=== PATIENT | male | born 1960 | race African-American/Black ===

== ENCOUNTER 2016-10-10 16:17 | Inpatient (IN) | payer OTHER ==
--- NOTE | ~2016-10-10 | CN ---
Consultation Report [facility] [place] [address] [place]. [address] NAME: IRAJ PATEL : 60 STATUS : ADM IN PAT#: [id number] AGE: 56 ADM/REG DATE : 10/10/16 MR#: [id number] REPORT SERV DATE: 10/11/16 DICTATED BY: PAT VALLES DATE: 10/11/16 REPORT STATUS : Draft TRANSCRIBED BY: MODL DATE: 10/11/16 CARDIOLOGY CONSULTATION DATE OF CONSULTATION: REASON FOR EVALUATION: Chest pain, atrial fibrillation, rapid ventricular response, fatigue, and exertional dyspnea. HISTORY OF PRESENT ILLNESS: The patient is a 56-year-old male with combined cardiomyopathy, atrial fibrillation with rapid ventricular response, ventricular tachycardia ([employer]on ICD in situ), and diabetes mellitus. He has had a number of cardiac procedures over the years, including ablation attempts at [facility] in 2009 and the [facility] in 2013. He states his atrial fibrillation has been more chronic. He has had a number of ICD discharges over the years, 90% of which he states are due to atrial fibrillation with rapid ventricular response. He has had two MIs, the first 09/2005, the second 10/2005, where he had an arrest x2 and a defibrillator placed ([employer] Alon). At the time of his TN in 10/2005, he states there was an attempt to place a stent unsuccessfully. His defibrillator is a single-chamber [employer] Alon device with an SVC coil placed at some point. His last hospitalization was in 01/2016 at [place] following a defibrillator discharge. He has had progressive decline in stamina, increasing dyspnea, and worsening malaise over the past two months (recently moved to [place] two months ago). He states he has had diaphoresis just walking the collado. He has had lower extremity edema, which is improved as of late. He states over the past several months, his sleep hygiene has deteriorated, he is only able sleep two to three hours. Presently, he is more comfortable. He denies sleep apnea, although he certainly has the physiognomy that would be consistent with underlying sleep apnea. CURRENT HOME MEDICATIONS: Aspirin 325 a day, atorvastatin 40 at h.s., carvedilol 25 b.i.d., furosemide 40 per day, glipizide 10 b.i.d., lisinopril 10 per day, Aldactone 25 q.a.m., Bactrim DS x15 days, and vitamin D twice weekly. ALLERGIES OR INTOLERANCES: Penicillins (unknown reaction). FAMILY HISTORY: Mother had diabetes and an enlarged heart, she had a pacemaker in her late 70s. Father at age 66 from an TN. SOCIAL HISTORY: He is , with one child. Does not use tobacco products, having quit four to five years ago. He did have a 15-year history. He has one joint daily for the past 30 years. He only uses it every couple of weeks at this time. Consultation Report [id number] [facility] [place]. [address] NAME: IRAJ PATEL : 60 STATUS : ADM IN [facility]#: [id number] AGE: 56 ADM/REG DATE : 10/10/16 MR#: [id number] REPORT SERV DATE: 10/11/16 DICTATED BY: PAT VALLES DATE: 10/11/16 REPORT STATUS : Draft TRANSCRIBED BY: LESLEY DATE: 10/11/16 PAST MEDICAL HISTORY/REVIEW OF SYSTEMS: See above. In addition, much of his cardiac care has been by Dr. Cavanaugh at the [facility] in [place], where he had his first arteriogram in 10/2005. He had a second arteriogram at the [facility] in 2009 and a third in [address] [facility] in [place]. His diabetes was diagnosed a year and a half ago. He has had only fair control. He has hypertension and hyperlipidemia. He has had some epigastric pain. He has chronic renal insufficiency, falling to a CKD stage 3 category. PHYSICAL EXAMINATION: GENERAL: Pleasant 56-year-old male. VITAL SIGNS: On arrival to the ER, blood pressure was 109/71, pulse 88 and irregular, respirations 16. SKIN: No xanthelasmas. He has some trophic changes and hyperpigmentation of the lower extremities from chronic edema. HEENT: He is normocephalic. There is no pallor. Sclerae are white. NECK: JVD is not elevated. There are no carotid bruits. CHEST: There is good AP movement. No crackles. CARDIAC: S1 variable, S2 singular. There is no gallop. There are no murmurs. ABDOMEN: Obese, but without tenderness. EXTREMITIES: At this time are without edema. NEUROLOGIC: No overt focal deficits. LABORATORY DATA: His chest x-ray shows cardiomegaly without acute abnormalities. His initial sodium was 131 and initial creatinine 1.74, which has dropped to 1.18 as of today. His TSH was low at 0.03. BNP was 74. Hemoglobin A1c 13.2. White count 4.9, hemoglobin 11.1, platelets 156,000. INR 1.3. 12-lead ECG is not yet available, although there is no evidence for acute repolarization changes. IMPRESSION: A 56-year-old male likely with combined heart failure (systolic and diastolic), exacerbated by atrial arrhythmias, chronic renal insufficiency, and diabetes mellitus. I would be suspicious of underlying sleep apnea and elevated pulmonary pressures, there is an echocardiogram pending. We will ask [employer] [facility] to interrogate his device. 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 Cavanaugh in [place] at [facility]. Further recommendations forthcoming. I have discussed some of these findings and observations with the patient. RENE/LESLEY Pat Valles, Consultation Report [address] [address] NAME: IRAJ PATEL : 60 STATUS : ADM IN [facility]#: [id number] AGE: 56 ADM/REG DATE : 10/10/16 MR#: [id number] REPORT SERV DATE: 10/11/16 DICTATED BY: PAT VALLES DATE: 10/11/16 REPORT STATUS : Draft TRANSCRIBED BY: LSELEY DATE: 10/11/16 Mahi / [id number] CC: MD Evelyn [facility]Mid [facility]
--- NOTE | ~2016-10-10 | PUL ---
[address] [place]. [address] NAME: IRAJ PATEL : 60 STATUS : DIS IN PAT#: [id number] AGE: 56 ADM/REG DATE : 10/10/16 MR#: [id number] REPORT SERV DATE: 10/21/16 DICTATED BY: NICOLAS SALEH DATE: 10/20/16 REPORT STATUS : Draft TRANSCRIBED BY: MODL DATE: 10/20/16 PULMONARY FUNCTION TEST PROCEDURE PERFORMED: Overnight oximetry performed on room air. The patient had borderline desaturation, spending 8 minutes with an oxygen saturation of less than 88%. The patient did have a significant increase in saturation event index. IMPRESSION: Borderline study. The patient does qualify for supplemental oxygen. Of note, the patient has significant elevation of desaturation event index and may benefit from a formal sleep study if clinically indicated. BE/LESLEY Nicolas Saleh M.D. / [id number] CC: MD DAVID Freed ABIMBOLA
--- NOTE | ~2016-10-10 | DS ---
Discharge Summary [address] [facility] [place]. [address] NAME: IRAJ PATEL : 60 STATUS : DIS IN PAT#: [id number] AGE: 56 ADM/REG DATE : 10/10/16 MR#: [id number] REPORT SERV DATE: 10/16/16 DICTATED BY: GAGE STEWARD DATE: 10/15/16 REPORT STATUS : Draft TRANSCRIBED BY: MODL DATE: 10/15/16 ADMISSION DATE: 10/10/2016 DISCHARGE DATE: 10/15/2016 ADDENDUM: This dictation is in addition to interim discharge summary that was dictated by Dr. Allison on 10/14/2016. At the time of assumption of care, the patient was cleared by Cardiology for discharge. He remained hemodynamically stable. The patient is currently within sinus rhythm. His vitals are stable. The patient is hemodynamically stable. Given clearance by Cardiology and given completion of management, the patient will be discharged home today to follow up with Cardiology and also primary care physician. Plan has been discussed with the patient who voices understanding and is agreeable with this plan. All other information remains the same. Greater than 30 minutes was spent coordinating care, reviewing the chart, planning discharge, dictation of note, medication reconciliation. TATUM/LESLEY Gage Steward MD / [id number] CC: MD DAVID Freed ABIMBOLA
--- NOTE | ~2016-10-10 | IDS ---
Interim Discharge Summary [facility] [address] [place]. [address] NAME: IRAJ ARIZA : 60 STATUS : ADM IN PAT#: [id number] AGE: 56 ADM/REG DATE : 10/10/16 MR#: [id number] REPORT SERV DATE: 10/14/16 DICTATED BY: ANDREE ZAMORA DATE: 10/14/16 REPORT STATUS : Draft TRANSCRIBED BY: MODL DATE: 10/14/16 ADMISSION DATE: 10/10/2016 DISCHARGE DATE: REASON FOR ADMISSION: Chest pain. HPI: Please refer to Dr. Pablo Lowe's history and physical dated 10/10 for complete details regarding the patient's admission. In brief, the patient was admitted to the Hospice Service for management of his atrial fibrillation, atrial flutter, and chest pain. HOSPITAL COURSE: Several issues were addressed. 1. Acute kidney injury. The patient presented with a mildly elevated creatinine of 1.74. He was started on IV fluids and it has now resolved. 2. Epigastric pain. This is likely secondary from constipation as noted on the KUB. He had a bowel movement after getting some magnesium citrate and was feeling much better. At the time of this dictation, started having some more abdominal distention and was requesting for some more laxatives, which we will initiate. 3. Poorly controlled insulin-dependent diabetes. The patient is not currently on insulin, has not been taking any insulin at home even though he was prescribed insulin. He has an A1c of 13.2% dated on 10/10. We have been up titrating his insulin. His sugars are running in the 200s to 300s in the hospital. We are continuing to increase it. He will likely need to be discharged with an insulin prescription. 4. Atrial fibrillation/atrial flutter. The patient was placed on a heparin drip. Started on rate controlling medications. [facility] was consulted. Dr. Valles has requested records from multiple facilities outside the [place] area. We are currently awaiting Dr. Valles's final recommendations. He is currently rate controlled. I suspect he will need to be on some sort of oral anticoagulant prior to discharge. 5. Morbid obesity. This has been stable. 6. History of pacemaker placement. PROCEDURES: Include consultation with Dr. Valles, Dr. Kay, pacemaker interrogation, chest x-ray. DISPOSITION: Per [facility], his active medical issues are currently stable. We are waiting for [facility] to make their final recommendations, and once that happens, he can be discharged home. Final disposition per oncoming hospitalist is pending regarding doing interim on Mr. Ariza. JOSEF/LESLEY Andree Zamora MD / [id number] Interim Discharge Summary [address] [address] NAME: IRAJ ARIZA : 60 STATUS : ADM IN [facility]#: [id number] AGE: 56 ADM/REG DATE : 10/10/16 MR#: [id number] REPORT SERV DATE: 10/14/16 DICTATED BY: ANDREE ZAMORA DATE: 10/14/16 REPORT STATUS : Draft TRANSCRIBED BY: LESLEY DATE: 10/14/16 CC: MD DAVID Freed ABIMBOLA
--- NOTE | ~2016-10-10 | HP ---
History And Physical [address] [place]. [address] NAME: IRAJ PATEL : 60 STATUS : REG ER PAT#: [id number] AGE: 56 ADM/REG DATE : 10/10/16 MR#: [id number] REPORT SERV DATE: 10/10/16 DICTATED BY: JOSH PRESTON DATE: 10/10/16 REPORT STATUS : Draft TRANSCRIBED BY: MODL DATE: 10/10/16 DATE OF ADMISSION: 10/10/2016 CHIEF COMPLAINT: Chest pain and shortness of breath. HISTORY OF PRESENT ILLNESS: The patient is a 56-year-old male. He has a past medical history significant for coronary artery disease. He states he has had NV x2, last in 10/2005. He has never had a stent or bypass. He said that the artery that would require a stent was stented x2 and unsuccessful. He also has a history of fairly recurrent or chronic atrial fib, congestive heart failure with an AICD pacer. He has diabetes, hypertension, hyperlipidemia, and he states he has been told recently he is anemic, although his hemoglobin is 11.6 today. He presents with three to four days of "not feeling right." He states he has noted exertional dyspnea. He has noted no palpitations or syncope. He has noticed just to have fatigue and has noticed a lot of "gas." He has also had some chest pain, although he states it was not like his previous episodes with the MIs in the past. He presents to the emergency department, was noted to be in atrial fib, was noted to be hyperglycemic and was noted to have some acute kidney injury. He states he has never been advised that his kidney numbers are not normal. His initial troponin; however, is less than 0.02 and although his EKG shows fibrillation or flutter he is not having. Otherwise, he is without complaints. PAST MEDICAL HISTORY: As covered above. PAST SURGICAL HISTORY: He has had the pacemaker placement. He states he has had the battery change not too long ago. CURRENT MEDICATIONS: Aspirin 325, Lipitor 40, Coreg 25 b.i.d., Lasix 40, Glucotrol 10 b.i.d., Prinivil 10, Aldactone 25, Bactrim DS, and vitamin D. ALLERGIES: PENICILLIN; CHILDHOOD REACTION; HE IS NOT CERTAIN WHAT HAPPENED. FAMILY HISTORY: Father had an NV at 66. Mother had multiple complications of age, passed at 84. SOCIAL HISTORY: Occasional EtOH. No tobacco. REVIEW OF SYSTEMS: HEENT: No complaint. CARDIOVASCULAR: As covered in the HPI. PULMONARY: He has had no fever or purulent sputum. GI: He has complained of a gas, but no change in bowels or emesis. Otherwise, 10-point review of systems is negative. PHYSICAL EXAMINATION: VITAL SIGNS: BP 101/76, pulse 87, temperature 97.9, respirations 16, saturation 99%. GENERAL: He is awake, alert, and oriented. History And Physical [address] [address] NAME: IRAJ PATEL : 60 STATUS : REG ER PAT#: [id number] AGE: 56 ADM/REG DATE : 10/10/16 MR#: [id number] REPORT SERV DATE: 10/10/16 DICTATED BY: JOSH PRESTON DATE: 10/10/16 REPORT STATUS : Draft TRANSCRIBED BY: LESLEY DATE: 10/10/16 HEENT: Normocephalic, atraumatic. Sclerae nonicteric. NECK: Supple. HEART: Irregular. LUNGS: Clear to auscultation. ABDOMEN: Obese, nontender, nondistended. EXTREMITIES: Trace edema. LABORATORY DATA: Sodium 131, potassium 4.8, chloride 97, CO2 of 24, BUN and creatinine of 25 and 1.74. Glucose 364. Troponin less than 0.02. White count is 5.6, H and H 11.6 and 35.2, platelets 171. INR is 1.3. Chest x-ray, cardiomegaly; AICD; no acute changes. ASSESSMENT: The patient with history of coronary artery disease, not on medical management, presenting with complaint of chest pain, atrial fibrillation; off anticoagulants with possibly new-onset acute renal insufficiency and suspected poorly-controlled diabetes mellitus. PLAN: The patient has been admitted. We will do serial enzymes; echocardiogram; IV fluids; control his sugars; withhold medications that may be complicating his kidneys; we will treat his gas; we will defer Cardiology decisions to the a.m. team. CHAIM/LESLEY Josh Preston M.D. / [id number] CC: COLE HERNANDEZ
--- NOTE | ~2016-10-10 | IDS ---
Interim Discharge Summary [facility] [address] [place] [place] [address] NAME: IRAJ PATEL : 60 STATUS : ADM IN PAT#: [id number] AGE: 56 ADM/REG DATE : 10/10/16 MR#: [id number] REPORT SERV DATE: 10/14/16 DICTATED BY: ANDREE ZAMORA DATE: 10/14/16 REPORT STATUS : Draft TRANSCRIBED BY: LESLEY DATE: 10/14/16 ADMISSION DATE: 10/10/2016 DISCHARGE DATE: DICTATION ENDS HERE JOSEF/LESLEY Andree Zamora MD / [id number] CC: MD COLE Freed
[2016-10-10 14:35] LABS: BASOPHILS 0.4 %; BASOPHILS ABSOLUTE 0.02 10/3/uL (0.0-0.16); EOSINOPHILS 3.8 %; EOSINOPHILS ABSOLUTE 0.21 10/3/uL (0.0-0.53); HEMATOCRIT 35.2 % (40.0-51.0); HEMOGLOBIN 11.6 g/dL (13.6-17.8); IMMATURE GRANULOCYTES 0.2 %; IMMATURE GRANULOCYTES ABSOLUTE 0.01 10/3/uL (0.0-0.11); LYMPHOCYTES 28.9 %; LYMPHOCYTES ABSOLUTE 1.61 10/3/uL (0.67-4.30); MEAN CORPUSCULAR HEMOGLOB 22.7 pg (26.0-34.0); MEAN PLATELET VOLUME 10.3 fL (9.2-13.0); MONOCYTES 11.5 %; MONOCYTES ABSOLUTE 0.64 10/3/uL (0.21-1.20); NEUTROPHILS 55.2 %; NEUTROPHILS ABSOLUTE 3.09 10/3/uL (2.02-8.40); PLATELET COUNT 171 10/3/uL (150-400); RBC DISTRIBUTION WIDTH 15.2 % (12.0-16.0); WHITE BLOOD CELLS 5.6 10/3/uL (4.5-10.5)
[2016-10-10 14:39] LABS: MANUAL DIFF NO %
[2016-10-10 14:51] LABS: BUN (BLOOD UREA NITROGEN) 25 MG/DL (6-23); CALCIUM, SERUM 8.6 MG/DL (8.5-10.4); CHEST PAIN PROFILE TAT 0 Hrs 20 Mins; CHLORIDE, SERUM 97 MMOL/L (96-112); CO2 (CARBON DIOXIDE) 24 MMOL/L (24-34); CREATININE 1.74 MG/DL (0.70-1.30); GFR AFRICAN AMERICAN 50 ML/MIN (>=60); GFR NON AFRICAN AMERICAN 43 ML/MIN (>=60); PLATELET ESTIMATE ADQ (ADEQUATE); POTASSIUM, SERUM 4.8 MMOL/L (3.5-5.3); SODIUM, SERUM 131 MMOL/L (135-148); TROPONIN I <0.02 NG/ML (<0.05)
[2016-10-10 14:52] LABS: HYPOCHROMIA 1+ (3-10/OIF) (0-2/OIF); OVALOCYTES 1+ (3-10/OIF) (0-2/OIF); RBC MORPHOLOGY ABN (NORMAL); TEARDROP SHAPED RBCS OCC (0-2/OIF)
[2016-10-10 14:53] LABS: GLUCOSE, SERUM 364 MG/DL (60-99)
[2016-10-10 14:57] LABS: INTERNATIONAL NORMAL RATI 1.3 UNITS (-); PARTIAL THROMBO TIME 30.1 SEC (22.5-37.2); PROTIME (NOT ORD) 15.8 SEC (12.0-14.5)
[~2016-10-10 16:17] MED LIST: ASAEC PO; BACTRIM DS1 TAB PO; COREG25 PO; GLUCOTRO10 PO; L40 PO; LIPITOR40 PO; OTC VITAMIN D PO; PRIN10 PO; SPIRO25 PO
[2016-10-10 21:22] LABS: B NATRIURETIC PEPTIDE (BNP) 74.2 PG/ML (< 100.0)
[2016-10-11 06:52] LABS: BASOPHILS 0.4 %; BASOPHILS ABSOLUTE 0.02 10/3/uL (0.0-0.16); EOSINOPHILS 3.5 %; EOSINOPHILS ABSOLUTE 0.17 10/3/uL (0.0-0.53); HEMATOCRIT 33.4 % (40.0-51.0); HEMOGLOBIN 11.1 g/dL (13.6-17.8); IMMATURE GRANULOCYTES 0.2 %; IMMATURE GRANULOCYTES ABSOLUTE 0.01 10/3/uL (0.0-0.11); LYMPHOCYTES 44.6 %; LYMPHOCYTES ABSOLUTE 2.17 10/3/uL (0.67-4.30); MEAN CORPUS HGB CONC 33.2 g/dL (32.0-36.0); MEAN CORPUSCULAR HEMOGLOB 22.9 pg (26.0-34.0); MEAN CORPUSCULAR VOLUME 68.9 fL (80-100); MEAN PLATELET VOLUME 10.5 fL (9.2-13.0); MONOCYTES 13.6 %; MONOCYTES ABSOLUTE 0.66 10/3/uL (0.21-1.20); NEUTROPHILS 37.7 %; NEUTROPHILS ABSOLUTE 1.84 10/3/uL (2.02-8.40); PLATELET COUNT 156 10/3/uL (150-400); RBC DISTRIBUTION WIDTH 15.2 % (12.0-16.0); RED CELL COUNT 4.85 10/6/uL (4.7-6.1); WHITE BLOOD CELLS 4.9 10/3/uL (4.5-10.5)
[2016-10-11 06:59] LABS: MANUAL DIFF NO %
[2016-10-11 07:02] LABS: CALCIUM, SERUM 8.4 MG/DL (8.5-10.4); CHLORIDE, SERUM 101 MMOL/L (96-112); CO2 (CARBON DIOXIDE) 22 MMOL/L (24-34); POTASSIUM, SERUM 4.2 MMOL/L (3.5-5.3); SODIUM, SERUM 132 MMOL/L (135-148)
[2016-10-11 07:05] LABS: BUN (BLOOD UREA NITROGEN) 20 MG/DL (6-23); CREATININE 1.18 MG/DL (0.70-1.30); GFR AFRICAN AMERICAN 79 ML/MIN (>=60); GFR NON AFRICAN AMERICAN 69 ML/MIN (>=60); GLUCOSE, SERUM 254 MG/DL (60-99)
[2016-10-11 07:43] LABS: PLATELET ESTIMATE ADQ (ADEQUATE)
[2016-10-11 11:31] LABS: GLYCOHEMOGLOBIN (HbA1c) 13.2 % (4.7-6.1)
[2016-10-11 15:07] LABS: ALBUMIN 3.1 G/DL (3.5-5.0); ALKALINE PHOSPHATASE 110 U/L (45-117); DIRECT BILIRUBIN 0.2 MG/DL (0.0-0.4); INDIRECT BILIRUBIN(NOT ORDER) 0.5 MG/DL (0.1-0.9); SGOT(AST) 27 U/L (5-40); SGPT(ALT) 50 U/L (5-65); TOTAL BILIRUBIN 0.7 MG/DL (0-1.2); TOTAL PROTEIN 7.4 G/DL (6.0-8.5)
[2016-10-12 08:05] LABS: BASOPHILS 0.6 %; BASOPHILS ABSOLUTE 0.03 10/3/uL (0.0-0.16); EOSINOPHILS 3.2 %; EOSINOPHILS ABSOLUTE 0.15 10/3/uL (0.0-0.53); HEMATOCRIT 33.1 % (40.0-51.0); HEMOGLOBIN 10.8 g/dL (13.6-17.8); IMMATURE GRANULOCYTES 0.2 %; IMMATURE GRANULOCYTES ABSOLUTE 0.01 10/3/uL (0.0-0.11); LYMPHOCYTES 42.3 %; LYMPHOCYTES ABSOLUTE 1.97 10/3/uL (0.67-4.30); MEAN CORPUS HGB CONC 32.6 g/dL (32.0-36.0); MEAN CORPUSCULAR HEMOGLOB 22.8 pg (26.0-34.0); MEAN CORPUSCULAR VOLUME 69.8 fL (80-100); MEAN PLATELET VOLUME 10.2 fL (9.2-13.0); MONOCYTES 16.1 %; MONOCYTES ABSOLUTE 0.75 10/3/uL (0.21-1.20); NEUTROPHILS 37.6 %; NEUTROPHILS ABSOLUTE 1.75 10/3/uL (2.02-8.40); PLATELET COUNT 140 10/3/uL (150-400); RBC DISTRIBUTION WIDTH 15.1 % (12.0-16.0); RED CELL COUNT 4.74 10/6/uL (4.7-6.1); WHITE BLOOD CELLS 4.7 10/3/uL (4.5-10.5)
[2016-10-12 08:09] LABS: MANUAL DIFF NO %
[2016-10-12 08:20] LABS: A/G RATIO 0.7 (0.7-1.9); ALBUMIN 2.9 G/DL (3.5-5.0); ALKALINE PHOSPHATASE 118 U/L (45-117); BUN (BLOOD UREA NITROGEN) 19 MG/DL (6-23); CALCIUM, SERUM 8.3 MG/DL (8.5-10.4); CHLORIDE, SERUM 102 MMOL/L (96-112); CO2 (CARBON DIOXIDE) 22 MMOL/L (24-34); CREATININE 1.11 MG/DL (0.70-1.30); GFR AFRICAN AMERICAN 86 ML/MIN (>=60); GFR NON AFRICAN AMERICAN 74 ML/MIN (>=60); GLOBULIN 4.1 G/DL (2.5-4.1); GLUCOSE, SERUM 249 MG/DL (60-99); PHOSPHORUS, SERUM 2.8 MG/DL (2.5-4.5); POTASSIUM, SERUM 4.9 MMOL/L (3.5-5.3); SGOT(AST) 26 U/L (5-40); SGPT(ALT) 48 U/L (5-65); SODIUM, SERUM 135 MMOL/L (135-148); TOTAL BILIRUBIN 0.6 MG/DL (0-1.2)
[2016-10-12 08:28] LABS: PLATELET ESTIMATE SLT DEC (ADEQUATE)
[2016-10-12 21:11] LABS: CPK 69 U/L (0-200); TROPONIN I <0.02 NG/ML (<0.05)
[2016-10-12 21:14] LABS: CK-MB 0.5 NG/ML
[2016-10-13 01:19] LABS: BASOPHILS 0.4 %; BASOPHILS ABSOLUTE 0.02 10/3/uL (0.0-0.16); EOSINOPHILS 3.1 %; EOSINOPHILS ABSOLUTE 0.16 10/3/uL (0.0-0.53); HEMATOCRIT 32.1 % (40.0-51.0); HEMOGLOBIN 10.9 g/dL (13.6-17.8); IMMATURE GRANULOCYTES 0.2 %; IMMATURE GRANULOCYTES ABSOLUTE 0.01 10/3/uL (0.0-0.11); LYMPHOCYTES 43.8 %; LYMPHOCYTES ABSOLUTE 2.27 10/3/uL (0.67-4.30); MEAN CORPUSCULAR HEMOGLOB 23.4 pg (26.0-34.0); MEAN CORPUSCULAR VOLUME 68.9 fL (80-100); MEAN PLATELET VOLUME 9.8 fL (9.2-13.0); MONOCYTES ABSOLUTE 0.57 10/3/uL (0.21-1.20); NEUTROPHILS 41.5 %; NEUTROPHILS ABSOLUTE 2.15 10/3/uL (2.02-8.40); PLATELET COUNT 149 10/3/uL (150-400); RBC DISTRIBUTION WIDTH 15.2 % (12.0-16.0); RED CELL COUNT 4.66 10/6/uL (4.7-6.1); WHITE BLOOD CELLS 5.2 10/3/uL (4.5-10.5)
[2016-10-13 01:22] LABS: MANUAL DIFF NO %
[2016-10-13 01:34] LABS: A/G RATIO 0.7 (0.7-1.9); ALBUMIN 2.9 G/DL (3.5-5.0); ALKALINE PHOSPHATASE 121 U/L (45-117); BUN (BLOOD UREA NITROGEN) 18 MG/DL (6-23); CALCIUM, SERUM 8.2 MG/DL (8.5-10.4); CHLORIDE, SERUM 104 MMOL/L (96-112); CO2 (CARBON DIOXIDE) 24 MMOL/L (24-34); CREATININE 1.18 MG/DL (0.70-1.30); GFR AFRICAN AMERICAN 79 ML/MIN (>=60); GFR NON AFRICAN AMERICAN 69 ML/MIN (>=60); GLOBULIN 4.1 G/DL (2.5-4.1); GLUCOSE, SERUM 232 MG/DL (60-99); POTASSIUM, SERUM 4.5 MMOL/L (3.5-5.3); SGOT(AST) 21 U/L (5-40); SGPT(ALT) 48 U/L (5-65); SODIUM, SERUM 136 MMOL/L (135-148); TOTAL BILIRUBIN 0.4 MG/DL (0-1.2)
[2016-10-13 01:36] LABS: GIANT PLATELET FEW
[2016-10-13 01:37] LABS: PLATELET ESTIMATE ADQ (ADEQUATE); RBC MORPHOLOGY ABN (NORMAL)
[2016-10-13 01:46] LABS: PARTIAL THROMBO TIME 133.4 SEC (22.5-37.2)
[2016-10-14 04:41] LABS: BASOPHILS 0.3 %; BASOPHILS ABSOLUTE 0.02 10/3/uL (0.0-0.16); EOSINOPHILS 3.2 %; EOSINOPHILS ABSOLUTE 0.19 10/3/uL (0.0-0.53); HEMATOCRIT 33.2 % (40.0-51.0); HEMOGLOBIN 10.9 g/dL (13.6-17.8); IMMATURE GRANULOCYTES 0.2 %; IMMATURE GRANULOCYTES ABSOLUTE 0.01 10/3/uL (0.0-0.11); LYMPHOCYTES 39.9 %; LYMPHOCYTES ABSOLUTE 2.39 10/3/uL (0.67-4.30); MEAN CORPUS HGB CONC 32.8 g/dL (32.0-36.0); MEAN CORPUSCULAR HEMOGLOB 22.7 pg (26.0-34.0); MEAN CORPUSCULAR VOLUME 69.2 fL (80-100); MEAN PLATELET VOLUME 10.3 fL (9.2-13.0); MONOCYTES ABSOLUTE 0.72 10/3/uL (0.21-1.20); NEUTROPHILS 44.4 %; NEUTROPHILS ABSOLUTE 2.66 10/3/uL (2.02-8.40); PLATELET COUNT 173 10/3/uL (150-400); RBC DISTRIBUTION WIDTH 15.3 % (12.0-16.0)
[2016-10-14 04:46] LABS: MANUAL DIFF NO %
[2016-10-14 04:53] LABS: A/G RATIO 0.7 (0.7-1.9); ALBUMIN 3.1 G/DL (3.5-5.0); ALKALINE PHOSPHATASE 126 U/L (45-117); BUN (BLOOD UREA NITROGEN) 17 MG/DL (6-23); CALCIUM, SERUM 8.5 MG/DL (8.5-10.4); CHLORIDE, SERUM 101 MMOL/L (96-112); CO2 (CARBON DIOXIDE) 22 MMOL/L (24-34); CREATININE 1.06 MG/DL (0.70-1.30); GFR AFRICAN AMERICAN 90 ML/MIN (>=60); GFR NON AFRICAN AMERICAN 78 ML/MIN (>=60); GLOBULIN 4.3 G/DL (2.5-4.1); GLUCOSE, SERUM 220 MG/DL (60-99); PHOSPHORUS, SERUM 2.8 MG/DL (2.5-4.5); POTASSIUM, SERUM 4.4 MMOL/L (3.5-5.3); SGOT(AST) 22 U/L (5-40); SGPT(ALT) 47 U/L (5-65); SODIUM, SERUM 133 MMOL/L (135-148); TOTAL BILIRUBIN 0.8 MG/DL (0-1.2); TOTAL PROTEIN 7.4 G/DL (6.0-8.5)
[2016-10-14 06:22] LABS: ANISOCYTOSIS 1+ (5-10/OIF) (0-5/OIF); PLATELET ESTIMATE ADQ (ADEQUATE); RBC MORPHOLOGY ABN (NORMAL)
[2016-10-14 06:51] LABS: INTERNATIONAL NORMAL RATI 1.3 UNITS (-); PROTIME (NOT ORD) 15.6 SEC (12.0-14.5)
[2016-10-15 04:45] LABS: BASOPHILS 0.3 %; BASOPHILS ABSOLUTE 0.02 10/3/uL (0.0-0.16); EOSINOPHILS 3.4 %; HEMATOCRIT 34.3 % (40.0-51.0); HEMOGLOBIN 11.2 g/dL (13.6-17.8); IMMATURE GRANULOCYTES 0.2 %; IMMATURE GRANULOCYTES ABSOLUTE 0.01 10/3/uL (0.0-0.11); LYMPHOCYTES 36.5 %; LYMPHOCYTES ABSOLUTE 2.12 10/3/uL (0.67-4.30); MANUAL DIFF NO %; MEAN CORPUS HGB CONC 32.7 g/dL (32.0-36.0); MEAN CORPUSCULAR HEMOGLOB 22.7 pg (26.0-34.0); MEAN CORPUSCULAR VOLUME 69.6 fL (80-100); MEAN PLATELET VOLUME 9.8 fL (9.2-13.0); MONOCYTES 15.1 %; MONOCYTES ABSOLUTE 0.88 10/3/uL (0.21-1.20); NEUTROPHILS 44.5 %; NEUTROPHILS ABSOLUTE 2.58 10/3/uL (2.02-8.40); PLATELET COUNT 207 10/3/uL (150-400); RBC DISTRIBUTION WIDTH 15.3 % (12.0-16.0); RED CELL COUNT 4.93 10/6/uL (4.7-6.1); WHITE BLOOD CELLS 5.8 10/3/uL (4.5-10.5)
[2016-10-15 04:58] LABS: A/G RATIO 0.7 (0.7-1.9); ALBUMIN 3.2 G/DL (3.5-5.0); ALKALINE PHOSPHATASE 126 U/L (45-117); BUN (BLOOD UREA NITROGEN) 18 MG/DL (6-23); CALCIUM, SERUM 8.7 MG/DL (8.5-10.4); CHLORIDE, SERUM 104 MMOL/L (96-112); CO2 (CARBON DIOXIDE) 25 MMOL/L (24-34); CREATININE 1.07 MG/DL (0.70-1.30); GFR AFRICAN AMERICAN 89 ML/MIN (>=60); GFR NON AFRICAN AMERICAN 77 ML/MIN (>=60); GLOBULIN 4.5 G/DL (2.5-4.1); PHOSPHORUS, SERUM 3.2 MG/DL (2.5-4.5); POTASSIUM, SERUM 4.2 MMOL/L (3.5-5.3); SGOT(AST) 23 U/L (5-40); SGPT(ALT) 49 U/L (5-65); SODIUM, SERUM 136 MMOL/L (135-148); TOTAL BILIRUBIN 0.6 MG/DL (0-1.2); TOTAL PROTEIN 7.7 G/DL (6.0-8.5)
[2016-10-15 04:59] LABS: GLUCOSE, SERUM 110 MG/DL (60-99)
[2016-10-15 05:06] LABS: PLATELET ESTIMATE ADQ (ADEQUATE)
[2016-10-15] MEDS ORDERED: CARDCD120 PO (11:41)
[2016-10-15] MEDS ORDERED: XARELTO20 MG PO (11:42)
[2016-10-15] MEDS ORDERED: NOVOLOG SC (11:44)
[2016-10-15] MEDS ORDERED: PROTONIX PO (11:45)
[2016-10-15] MEDS ORDERED: LEVEMIR SC (11:47)
[2017-01-01] MEDS ORDERED: COREG25 PO (02:58)
[2017-01-01] MEDS ORDERED: XARELTO20 MG PO (02:59)
[2017-01-01] MEDS ORDERED: PRIN10 PO (02:59)
[2017-01-01] MEDS ORDERED: KDUR20 PO (02:59)
[2017-01-01] MEDS ORDERED: CARTIA XT120 MG/24 PO (03:01)
[2017-01-01] MEDS ORDERED: PROTONIX PO (03:01)
[2017-01-01] MEDS ORDERED: LEVEMIR SC (03:01)
[2017-01-01] MEDS ORDERED: GLUCOTRO10 PO (03:02)
[2017-01-01] MEDS ORDERED: DEMA100 PO (03:02)
[2017-01-01] MEDS ORDERED: LIPITOR40 PO (03:02)
[2017-01-01] MEDS ORDERED: SPIRO25 PO (03:02)
[2017-01-01] MEDS ORDERED: FLONASE NAS (03:03)
[2017-01-01] MEDS ORDERED: ASABAYER PO (03:04)
[2017-01-01] MEDS ORDERED: NOVOLOG SC ×2 (03:04)
== END 2016-10-15 16:50 | disposition home or self-care (01) | DRG 683 ==
LOC: ER 16:17 → 7NO 18:18
PROVIDERS: Hospitalist; Internal Medicine
PROC: 4B02XTZ Measurement of Cardiac Defibrillator, External Approach (ICD-10-PCS; principal; 2016-10-11)
DX: N17.9 Acute kidney failure, unspecified (principal); I48.92 Unspecified atrial flutter; E11.65 Type 2 diabetes mellitus with hyperglycemia; I10 Essential (primary) hypertension; I48.2 Chronic atrial fibrillation; I25.10 Atherosclerotic heart disease of native coronary artery without angina pectoris; I25.2 Old myocardial infarction; K59.00 Constipation, unspecified; Z88.0 Allergy status to penicillin; Z68.39 Body mass index [BMI] 39.0-39.9, adult; Z79.82 Long term (current) use of aspirin; Z95.810 Presence of automatic (implantable) cardiac defibrillator; Z79.4 Long term (current) use of insulin; Z87.891 Personal history of nicotine dependence
CPT/HCPCS: 71020; 74000; 80048; 80053; 80076; 82550; 82553; 82962; 83036; 83690; 83735; 83880; 84100; 84443; 84484; 85025; 85610; 85730; 93005; 93306; 94762; 99285; A9270-GY

== ENCOUNTER 2016-10-21 10:10 | Emergency (ER) | payer OTHER ==
[~2016-10-21 10:10] MED LIST changes: +CARDCD120 PO; +LEVEMIR SC; +NOVOLOG SC; +PROTONIX PO; +XARELTO20 MG PO
[2016-10-21 10:59] LABS: BASOPHILS 0.4 %; BASOPHILS ABSOLUTE 0.02 10/3/uL (0.0-0.16); EOSINOPHILS 2.9 %; EOSINOPHILS ABSOLUTE 0.13 10/3/uL (0.0-0.53); ER CBC TAT 0 Hrs 03 Mins; HEMOGLOBIN 11.2 g/dL (13.6-17.8); IMMATURE GRANULOCYTES 0.2 %; IMMATURE GRANULOCYTES ABSOLUTE 0.01 10/3/uL (0.0-0.11); LYMPHOCYTES 31.8 %; LYMPHOCYTES ABSOLUTE 1.43 10/3/uL (0.67-4.30); MEAN CORPUS HGB CONC 32.9 g/dL (32.0-36.0); MEAN CORPUSCULAR VOLUME 69.7 fL (80-100); MEAN PLATELET VOLUME 9.3 fL (9.2-13.0); MONOCYTES 9.8 %; MONOCYTES ABSOLUTE 0.44 10/3/uL (0.21-1.20); NEUTROPHILS 54.9 %; NEUTROPHILS ABSOLUTE 2.46 10/3/uL (2.02-8.40); PLATELET COUNT 192 10/3/uL (150-400); RBC DISTRIBUTION WIDTH 15.5 % (12.0-16.0); RED CELL COUNT 4.88 10/6/uL (4.7-6.1); WHITE BLOOD CELLS 4.5 10/3/uL (4.5-10.5)
[2016-10-21 11:00] LABS: MANUAL DIFF NO %
[2016-10-21 11:09] LABS: INTERNATIONAL NORMAL RATI 2.8 UNITS (-); PARTIAL THROMBO TIME 38.8 SEC (22.5-37.2); PROTIME (NOT ORD) 29.4 SEC (12.0-14.5)
[2016-10-21 11:16] LABS: CALCIUM, SERUM 8.4 MG/DL (8.5-10.4); CHEST PAIN PROFILE TAT 0 Hrs 20 Mins; CHLORIDE, SERUM 105 MMOL/L (96-112); CO2 (CARBON DIOXIDE) 23 MMOL/L (24-34); CREATININE 1.28 MG/DL (0.70-1.30); GFR AFRICAN AMERICAN 72 ML/MIN (>=60); GFR NON AFRICAN AMERICAN 62 ML/MIN (>=60); POTASSIUM, SERUM 3.8 MMOL/L (3.5-5.3); SODIUM, SERUM 139 MMOL/L (135-148); TROPONIN I <0.02 NG/ML (<0.05)
[2016-10-21 11:17] LABS: BUN (BLOOD UREA NITROGEN) 22 MG/DL (6-23); GLUCOSE, SERUM 260 MG/DL (60-99)
[2017-01-01] MEDS ORDERED: COREG25 PO (02:58)
[2017-01-01] MEDS ORDERED: XARELTO20 MG PO (02:59)
[2017-01-01] MEDS ORDERED: KDUR20 PO (02:59)
[2017-01-01] MEDS ORDERED: PRIN10 PO (02:59)
[2017-01-01] MEDS ORDERED: CARTIA XT120 MG/24 PO (03:01)
[2017-01-01] MEDS ORDERED: PROTONIX PO (03:01)
[2017-01-01] MEDS ORDERED: LEVEMIR SC (03:01)
[2017-01-01] MEDS ORDERED: LIPITOR40 PO (03:02)
[2017-01-01] MEDS ORDERED: GLUCOTRO10 PO (03:02)
[2017-01-01] MEDS ORDERED: DEMA100 PO (03:02)
[2017-01-01] MEDS ORDERED: SPIRO25 PO (03:02)
[2017-01-01] MEDS ORDERED: FLONASE NAS (03:03)
[2017-01-01] MEDS ORDERED: NOVOLOG SC ×2 (03:04)
[2017-01-01] MEDS ORDERED: ASABAYER PO (03:04)
== END 2016-10-21 16:17 | disposition home or self-care (01) ==
LOC: ER 10:10
PROVIDERS: Emergency Medicine
DX: R06.00 Dyspnea, unspecified (principal); R60.0 Localized edema; I10 Essential (primary) hypertension; I25.2 Old myocardial infarction; I50.9 Heart failure, unspecified; I48.91 Unspecified atrial fibrillation; E11.9 Type 2 diabetes mellitus without complications; Z88.0 Allergy status to penicillin; Z79.82 Long term (current) use of aspirin
CPT/HCPCS: 71020; 80048; 83735; 83880; 84484; 85025; 85610; 85730; 93005; 96372; 99285

== ENCOUNTER 2016-11-22 12:49 | Inpatient (IN) | payer OTHER ==
[2016-11-22] MEDS ORDERED: ASABAYER PO (14:08)
[2016-11-22] MEDS ORDERED: COREG25 PO (14:08)
[2016-11-22] MEDS ORDERED: PRIN10 PO (14:09)
[2016-11-22] MEDS ORDERED: SPIRO25 PO (14:10)
[2016-11-22] MEDS ORDERED: L40 PO (14:11)
[2016-11-22] MEDS ORDERED: XARELTO20 MG PO (14:11)
[2016-11-22] MEDS ORDERED: GLUCOTRO10 PO (14:12)
[2016-11-22] MEDS ORDERED: LIPITOR40 PO (14:12)
[2016-11-22] MEDS ORDERED: PROTONIX PO (14:14)
[2016-11-22] MEDS ORDERED: NOVOLOG SC (14:14)
[2016-11-22] MEDS ORDERED: VITD PO (14:14)
[2016-11-22] MEDS ORDERED: FLONASE NAS (14:16)
[2016-11-22] MEDS ORDERED: CARTIA XT120 MG/24 PO (14:16)
[2016-11-22 14:38] LABS: BASOPHILS 0.2 %; BASOPHILS ABSOLUTE 0.01 10/3/uL (0.0-0.16); EOSINOPHILS 2.7 %; EOSINOPHILS ABSOLUTE 0.13 10/3/uL (0.0-0.53); HEMATOCRIT 33.7 % (40.0-51.0); HEMOGLOBIN 10.8 g/dL (13.6-17.8); IMMATURE GRANULOCYTES 0.2 %; IMMATURE GRANULOCYTES ABSOLUTE 0.01 10/3/uL (0.0-0.11); LYMPHOCYTES 40.1 %; LYMPHOCYTES ABSOLUTE 1.96 10/3/uL (0.67-4.30); MEAN CORPUSCULAR HEMOGLOB 22.3 pg (26.0-34.0); MEAN CORPUSCULAR VOLUME 69.6 fL (80-100); MEAN PLATELET VOLUME 10.2 fL (9.2-13.0); MONOCYTES 13.7 %; MONOCYTES ABSOLUTE 0.67 10/3/uL (0.21-1.20); NEUTROPHILS 43.1 %; NEUTROPHILS ABSOLUTE 2.11 10/3/uL (2.02-8.40); PLATELET COUNT 183 10/3/uL (150-400); RBC DISTRIBUTION WIDTH 16.4 % (12.0-16.0); RED CELL COUNT 4.84 10/6/uL (4.7-6.1); WHITE BLOOD CELLS 4.9 10/3/uL (4.5-10.5)
[2016-11-22 14:39] LABS: MANUAL DIFF NO %
[2016-11-22 14:54] LABS: A/G RATIO 0.8 (0.7-1.9); ALBUMIN 3.7 G/DL (3.5-5.0); ALKALINE PHOSPHATASE 124 U/L (45-117); BUN (BLOOD UREA NITROGEN) 19 MG/DL (6-23); CHLORIDE, SERUM 109 MMOL/L (96-112); CO2 (CARBON DIOXIDE) 30 MMOL/L (24-34); CREATININE 1.23 MG/DL (0.70-1.30); GFR AFRICAN AMERICAN 76 ML/MIN (>=60); GFR NON AFRICAN AMERICAN 65 ML/MIN (>=60); GLOBULIN 4.4 G/DL (2.5-4.1); GLUCOSE, SERUM 87 MG/DL (60-99); PHOSPHORUS, SERUM 2.8 MG/DL (2.5-4.5); POTASSIUM, SERUM 3.5 MMOL/L (3.5-5.3); SGOT(AST) 26 U/L (5-40); SGPT(ALT) 44 U/L (5-65); SODIUM, SERUM 144 MMOL/L (135-148); TOTAL PROTEIN 8.1 G/DL (6.0-8.5)
[2016-11-22 15:26] LABS: ANISOCYTOSIS 1+ (5-10/OIF) (0-5/OIF); OVALOCYTES 1+ (3-10/OIF) (0-2/OIF)
[2016-11-23 06:00] LABS: BASOPHILS 0.4 %; BASOPHILS ABSOLUTE 0.02 10/3/uL (0.0-0.16); EOSINOPHILS 2.8 %; EOSINOPHILS ABSOLUTE 0.15 10/3/uL (0.0-0.53); HEMATOCRIT 35.2 % (40.0-51.0); HEMOGLOBIN 11.4 g/dL (13.6-17.8); IMMATURE GRANULOCYTES 0.2 %; IMMATURE GRANULOCYTES ABSOLUTE 0.01 10/3/uL (0.0-0.11); LYMPHOCYTES 28.6 %; LYMPHOCYTES ABSOLUTE 1.55 10/3/uL (0.67-4.30); MEAN CORPUS HGB CONC 32.4 g/dL (32.0-36.0); MEAN CORPUSCULAR HEMOGLOB 22.4 pg (26.0-34.0); MEAN CORPUSCULAR VOLUME 69.2 fL (80-100); MEAN PLATELET VOLUME 10.1 fL (9.2-13.0); MONOCYTES 12.2 %; MONOCYTES ABSOLUTE 0.66 10/3/uL (0.21-1.20); NEUTROPHILS 55.8 %; NEUTROPHILS ABSOLUTE 3.03 10/3/uL (2.02-8.40); PLATELET COUNT 193 10/3/uL (150-400); RBC DISTRIBUTION WIDTH 16.3 % (12.0-16.0); RED CELL COUNT 5.09 10/6/uL (4.7-6.1); WHITE BLOOD CELLS 5.4 10/3/uL (4.5-10.5)
[2016-11-23 06:01] LABS: MANUAL DIFF NO %
[2016-11-23 06:16] LABS: BUN (BLOOD UREA NITROGEN) 19 MG/DL (6-23); CALCIUM, SERUM 9.1 MG/DL (8.5-10.4); CHLORIDE, SERUM 99 MMOL/L (96-112); CO2 (CARBON DIOXIDE) 37 MMOL/L (24-34); CREATININE 1.33 MG/DL (0.70-1.30); GFR AFRICAN AMERICAN 69 ML/MIN (>=60); GFR NON AFRICAN AMERICAN 59 ML/MIN (>=60); GLUCOSE, SERUM 225 MG/DL (60-99); POTASSIUM, SERUM 3.4 MMOL/L (3.5-5.3); SODIUM, SERUM 140 MMOL/L (135-148)
[2016-11-23 06:24] LABS: ACANTHOCYTES OCC (0-2/OIF); ELLIPTOCYTES 1+ (3-10/OIF) (0-2/OIF); HELMET CELLS OCC (0-2/OIF); HYPOCHROMIA 1+ (3-10/OIF) (0-2/OIF); PLATELET ESTIMATE ADQ (ADEQUATE); POLYCHROMASIA 1+ (2-5/OIF) (0-1/OIF)
[2016-11-23 06:25] LABS: POIKILOCYTOSIS 1+ (5-10/OIF) (0-5/OIF); TARGET CELLS OCC (1-2/OIF) (0-1/OIF); TEARDROP SHAPED RBCS OCC (0-2/OIF)
[2016-11-24 07:05] LABS: ALBUMIN 3.6 G/DL (3.5-5.0); BUN (BLOOD UREA NITROGEN) 23 MG/DL (6-23); CALCIUM, SERUM 9.2 MG/DL (8.5-10.4); CHLORIDE, SERUM 99 MMOL/L (96-112); CO2 (CARBON DIOXIDE) 32 MMOL/L (24-34); CREATININE 1.37 MG/DL (0.70-1.30); GFR AFRICAN AMERICAN 66 ML/MIN (>=60); GFR NON AFRICAN AMERICAN 57 ML/MIN (>=60); GLUCOSE, SERUM 201 MG/DL (60-99); PHOSPHORUS, SERUM 3.1 MG/DL (2.5-4.5); POTASSIUM, SERUM 3.7 MMOL/L (3.5-5.3); SODIUM, SERUM 139 MMOL/L (135-148)
[2016-11-24] MEDS ORDERED: DEMA100 PO (11:41)
[2016-11-24] MEDS ORDERED: KDUR20 PO (11:42)
[2017-01-01] MEDS ORDERED: COREG25 PO (02:58)
[2017-01-01] MEDS ORDERED: XARELTO20 MG PO (02:59)
[2017-01-01] MEDS ORDERED: PRIN10 PO (02:59)
[2017-01-01] MEDS ORDERED: KDUR20 PO (02:59)
[2017-01-01] MEDS ORDERED: LEVEMIR SC (03:01)
[2017-01-01] MEDS ORDERED: CARTIA XT120 MG/24 PO (03:01)
[2017-01-01] MEDS ORDERED: PROTONIX PO (03:01)
[2017-01-01] MEDS ORDERED: DEMA100 PO (03:02)
[2017-01-01] MEDS ORDERED: LIPITOR40 PO (03:02)
[2017-01-01] MEDS ORDERED: GLUCOTRO10 PO (03:02)
[2017-01-01] MEDS ORDERED: SPIRO25 PO (03:02)
[2017-01-01] MEDS ORDERED: FLONASE NAS (03:03)
[2017-01-01] MEDS ORDERED: NOVOLOG SC ×2 (03:04)
[2017-01-01] MEDS ORDERED: ASABAYER PO (03:04)
== END 2016-11-24 14:00 | disposition home or self-care (01) | DRG 291 ==
LOC: 6NO 12:49
PROVIDERS: Internal Medicine Clinical Cardiac Electrophysiology
DX: I13.0 Hypertensive heart and chronic kidney disease with heart failure and stage 1 through stage 4 chronic kidney disease, or unspecified chronic kidney disease (principal); I50.23 Acute on chronic systolic (congestive) heart failure; E11.22 Type 2 diabetes mellitus with diabetic chronic kidney disease; I42.9 Cardiomyopathy, unspecified; Z68.41 Body mass index [BMI] 40.0-44.9, adult; N18.3 Chronic kidney disease, stage 3 (moderate); I48.2 Chronic atrial fibrillation; E78.5 Hyperlipidemia, unspecified; E66.9 Obesity, unspecified; K21.9 Gastro-esophageal reflux disease without esophagitis; I34.0 Nonrheumatic mitral (valve) insufficiency; I25.2 Old myocardial infarction; Z82.49 Family history of ischemic heart disease and other diseases of the circulatory system; Z95.810 Presence of automatic (implantable) cardiac defibrillator
CPT/HCPCS: 80048; 80053; 80069; 82962; 83735; 83880; 84100; 84132; 85025; 93005; 93282; A9270-GY